=== PATIENT | male | born 1990 | race Asian ===

== ENCOUNTER 2019-01-21 04:10 | Emergency (ER) | payer SELFPAY ==
[~2019-01-21] VITALS: Ht 177.8 cm; Wt 68.0 kg
--- NOTE | 2019-01-21 04:20 | NUR ---
Patient to ER bed 3 for evaluation. Side rails up.
[2019-01-21 04:24] VITALS: BP_SYST 126
--- NOTE | 2019-01-21 04:24 | NUR ---
Pt C/O fever since last night and sore throat x 2 days. Pt took Tylenol at 2200 last night and temp is 101 in the ED. Denies any N/V/D, chest pain, shortness of breath, or any other symptoms at this time. Will continue to monitor.
[2019-01-21] MEDS ORDERED: IBUPROFEN 800 MG TABLET PO ONE (04:30)
--- NOTE | 2019-01-21 04:31 | NUR ---
ER Dr. Fisher at bedside examining patient.
[2019-01-21] MEDS ORDERED: KETOROLAC TROMETHAMINE 60 MG/2 ML VIAL IM ONE (04:45)
[2019-01-21] MEDS ORDERED: PENICILLIN G BENZATHINE 1.2 MMU/2 ML SYR IM ONE (04:45)
[2019-01-21] MEDS ORDERED: IBUPROFEN 800 MG TABLET ONE (04:46)
--- NOTE | 2019-01-21 05:02 | NUR ---
Patient given written and verbal discharge instructions and verbalizes understanding. ER MD discussed with patient the results and treatment provided. Patient in stable condition. ID arm band removed. Rx of Motrin and Prednisone given. Patient educated on pain management and to follow up with PMD. Pain Scale 0. Opportunity for questions provided and answered. Medication side effect fact sheet provided.
[2019-01-21 05:11] VITALS: BP_SYST 126
== END 2019-01-21 05:11 | disposition home or self-care (01) ==
LOC: SED 04:10
DX: J02.0 Streptococcal pharyngitis (principal); R03.0 Elevated blood-pressure reading, without diagnosis of hypertension; F17.210 Nicotine dependence, cigarettes, uncomplicated
CPT/HCPCS: 96372; 99283; J1885